=== PATIENT | male | born 1960 | race Caucasian/White ===

== ENCOUNTER 2018-12-20 00:10 | Inpatient (IN) | payer OTHER ==
[~2018-12-20] VITALS: Ht 180.3 cm; Wt 87.1 kg
[2018-12-20 00:19] VITALS: Ht 180.3 cm; Wt 87.1 kg
[2018-12-20 02:21] LABS: CALCIUM 8.7 mg/dL (8.5-10.1); CARBON DIOXIDE 28.9 mmol/L (21-32); CREATININE SERUM 2.2 mg/dL (0.7-1.3); POTASSIUM SERUM 4.6 mmol/L (3.5-5.1)
[2018-12-20 02:26] LABS: BILIRUBIN TOTAL 0.35 mg/dL (0.20-1.00); TOTAL PROTEIN, SERUM 7.5 g/dL (6.4-8.2)
[2018-12-20 02:28] LABS: PLATELET COUNT 345 x10^3mcL (130-400)
[2018-12-20 02:54] LABS: RED CELL DISTRIBUTION WIDTH 14.7 % (11.5-14.5)
[2018-12-20 04:23] LABS: MONOCYTE 5 % (0-7); SEGMENTED NEUTROPHILS 91 % (37-75)
[2018-12-20 04:25] LABS: PLATELET MORPHOLOGY PLATELETS NORMAL; rbc morphology (normal/abnorm) NORMAL (NORMAL)
[2018-12-20 04:29] LABS: UA SPECIFIC GRAVITY >=1.030 (1.005-1.035); microscopic required? YES; urine erythrocyte NEGATIVE (NEGATIVE)
[2018-12-20] MEDS ORDERED: TRAMADOL HCL50 MG PO (05:49)
[2018-12-20] MEDS ORDERED: COUMADIN3 MG PO (05:51)
[2018-12-20] MEDS ORDERED: PRAVASTATIN SOD10 M1 PO (05:51)
[2018-12-20] MEDS ORDERED: DIG125 PO (05:51)
[2018-12-20] MEDS ORDERED: GEMFIBROZIL600 MG PO (05:52)
[2018-12-20] MEDS ORDERED: ROBAXIN-750750 MG PO (05:52)
[2018-12-20] MEDS ORDERED: CARDIZEM CD180 MG PO (05:52)
[2018-12-20] MEDS ORDERED: LISINOPRIL10 MG PO (05:52)
[2018-12-20] MEDS ORDERED: GOOD SENSE OMEP20 MG PO (05:52)
[2018-12-20] MEDS ORDERED: FISH OIL1000 MG PO (05:52)
[2018-12-20 10:07] VITALS: BP 95/58
[2018-12-20 11:37] LABS: PLATELET COUNT 335 x10^3mcL (130-400); RED CELL DISTRIBUTION WIDTH 14.5 % (11.5-14.5)
[2018-12-20 12:00] VITALS: BP 93/50
[2018-12-20 12:20] LABS: BAND NEUTROPHIL 2 % (0-10); BASOPHIL 0 % (0-2); MONOCYTE 10 % (0-7); SEGMENTED NEUTROPHILS 80 % (37-75); rbc morphology (normal/abnorm) ABNORMAL (NORMAL)
[2018-12-20 13:21] VITALS: BP 106/64
[2018-12-20 18:00] VITALS: BP 111/58
[2018-12-20 18:21] LABS: BASOPHIL % 0.1 % (0-2); PLATELET COUNT 292 x10^3mcL (130-400)
[2018-12-20 18:29] LABS: RED CELL DISTRIBUTION WIDTH 14.6 % (11.5-14.5)
[2018-12-20 20:52] VITALS: BP 95/50
[2018-12-21] VITALS (7 sets, daily range): BP systolic 104–133; BP diastolic 57–71
[2018-12-21 00:46] LABS: PLATELET COUNT 255 x10^3mcL (130-400)
[2018-12-21 01:22] LABS: BASOPHIL % 0 % (0-2); RED CELL DISTRIBUTION WIDTH 14.6 % (11.5-14.5)
[2018-12-21 02:03] LABS: rbc morphology (normal/abnorm) ABNORMAL (NORMAL)
[2018-12-21 08:16] LABS: BASOPHIL % 0.3 % (0-2); PLATELET COUNT 240 x10^3mcL (130-400)
[2018-12-21 08:17] LABS: RED CELL DISTRIBUTION WIDTH 14.9 % (11.5-14.5)
[2018-12-21 11:08] LABS: CARBON DIOXIDE 25.5 mmol/L (21-32); CREATININE SERUM 2.4 mg/dL (0.7-1.3); POTASSIUM SERUM 4.1 mmol/L (3.5-5.1)
[2018-12-21 16:42] LABS: BASOPHIL % 0.3 % (0-2); PLATELET COUNT 230 x10^3mcL (130-400)
[2018-12-21 16:43] LABS: RED CELL DISTRIBUTION WIDTH 14.6 % (11.5-14.5)
[2018-12-22 04:44] LABS: PLATELET COUNT 257 x10^3mcL (130-400); RED CELL DISTRIBUTION WIDTH 14.5 % (11.5-14.5)
[2018-12-22 04:53] LABS: BAND NEUTROPHIL 1 % (0-10); MONOCYTE 11 % (0-7); SEGMENTED NEUTROPHILS 81 % (37-75)
[2018-12-22 04:54] LABS: PLATELET MORPHOLOGY PLATELETS NORMAL; rbc morphology (normal/abnorm) ABNORMAL (NORMAL)
[2018-12-22 05:06] VITALS: BP 121/67
[2018-12-22 05:26] LABS: CALCIUM 8.9 mg/dL (8.5-10.1); CARBON DIOXIDE 27.1 mmol/L (21-32); CREATININE SERUM 1.7 mg/dL (0.7-1.3); POTASSIUM SERUM 4.2 mmol/L (3.5-5.1)
[2018-12-22 09:45] VITALS: BP 129/69
[2018-12-22 17:08] VITALS: BP 120/71
[2018-12-22 21:24] VITALS: BP 131/72
[2018-12-23 05:19] VITALS: BP 111/60
[2018-12-23 06:44] LABS: BASOPHIL % 0.3 % (0-2); PLATELET COUNT 281 x10^3mcL (130-400); RED CELL DISTRIBUTION WIDTH 14.5 % (11.5-14.5)
[2018-12-23 07:09] LABS: CALCIUM 8.6 mg/dL (8.5-10.1); CARBON DIOXIDE 27.6 mmol/L (21-32); CREATININE SERUM 1.4 mg/dL (0.7-1.3); POTASSIUM SERUM 4.1 mmol/L (3.5-5.1)
[2018-12-23 09:08] VITALS: BP 129/68
[2018-12-23 17:30] VITALS: BP 134/73
[2018-12-23 21:12] VITALS: BP 117/72
[2018-12-24 05:54] VITALS: BP 142/73
[2018-12-24 06:55] LABS: BASOPHIL % 0.5 % (0-2); PLATELET COUNT 332 x10^3mcL (130-400)
[2018-12-24 07:20] LABS: ALKALINE PHOSPHATASE 62 U/L (46-116); ALT/SGPT 30 U/L (16-63); AST/SGOT 22 U/L (15-37); BILIRUBIN DIRECT 0.24 mg/dL (0.0-0.2); CALCIUM 8.9 mg/dL (8.5-10.1); CARBON DIOXIDE 26.8 mmol/L (21-32); CHLORIDE SERUM 105 mmol/L (98-107); CREATININE SERUM 1.2 mg/dL (0.7-1.3); GFR1 > 60 mL/min; GLUCOSE SERUM 91 mg/dL (74-106); POTASSIUM SERUM 4.3 mmol/L (3.5-5.1); SODIUM SERUM 141 mmol/L (136-145); TOTAL PROTEIN, SERUM 7.7 g/dL (6.4-8.2)
[2018-12-24 07:30] LABS: RED CELL DISTRIBUTION WIDTH 14.7 % (11.5-14.5)
[2018-12-24 07:36] LABS: ALBUMIN 3.2 g/dL (3.4-5.0)
[2018-12-24 09:22] VITALS: BP 138/76
[2018-12-24 10:56] VITALS: BP 138/76
== END 2018-12-24 12:41 | disposition home or self-care (01) | DRG 699 ==
LOC: ED 00:10 → MU 05:42
PROVIDERS: Emergency Medicine; Internal Medicine; ADMIT Internal Medicine Pulmonary Disease
PROC: 30233N1 Transfusion of Nonautologous Red Blood Cells into Peripheral Vein, Percutaneous Approach (ICD-10-PCS; principal; 2018-12-21)
PROC: 30233K1 Transfusion of Nonautologous Frozen Plasma into Peripheral Vein, Percutaneous Approach (ICD-10-PCS; 2018-12-21)
DX: N28.89 Other specified disorders of kidney and ureter (principal); D68.69 Other thrombophilia; J98.11 Atelectasis; I13.0 Hypertensive heart and chronic kidney disease with heart failure and stage 1 through stage 4 chronic kidney disease, or unspecified chronic kidney disease; N18.4 Chronic kidney disease, stage 4 (severe); I50.9 Heart failure, unspecified; I48.91 Unspecified atrial fibrillation; M32.9 Systemic lupus erythematosus, unspecified; Z68.27 Body mass index [BMI] 27.0-27.9, adult; Z79.01 Long term (current) use of anticoagulants; Z86.718 Personal history of other venous thrombosis and embolism
CPT/HCPCS: 90732; J2270; J2405; J3430; J7030; J7040; J7050; P9016; P9059; Q0163